=== PATIENT | female | born 1960 | race Caucasian/White ===

== ENCOUNTER → 2018-02-01 18:20 | Outpatient (CLI) | payer BC ==
[2013-08-01 08:39] VITALS: BMI 33.4
[~2018-02-01 18:20] MED LIST: NORCO 10/325 TA1 TA1 PO; PRILOSEC20 MG PO
== END | disposition home or self-care (01) ==
LOC: D.MAMMO 01-18 15:00
DX: Z12.31 Encounter for screening mammogram for malignant neoplasm of breast (principal)

== ENCOUNTER 2018-06-03 10:31 | Emergency (ER) | payer BC ==
[~2018-06-03] VITALS: Ht 152.4 cm; Wt 83.2 kg
[2018-06-03 10:55] VITALS: Ht 152.4 cm; Wt 83.2 kg
[2018-06-03] MEDS ORDERED: COZAAR50 MG PO (10:57)
[2018-06-03] MEDS ORDERED: SYNTHROID50 MCG PO (10:57)
[2018-06-03] MEDS ORDERED: GLUCOPHAGE500 MG PO (10:58)
[2018-06-03 11:33] LABS: APPEARANCE HAZY (CLEAR); BILIRUBIN NEGATIVE (NEGATIVE); COLOR YELLOW (YELLOW); GLUCOSE NEGATIVE (NEGATIVE); KETONE NEGATIVE (NEGATIVE); NITRITE NEGATIVE (NEGATIVE); PROTEIN TRACE mg/dL (NEGATIVE); UROBILINOGEN NORMAL (NORMAL)
[2018-06-03 11:34] LABS: BACTERIA FEW /hpf (NONE SEEN); EPITHELIAL CELLS 0-5 /hpf (0-5); MUCUS <1+ /lpf (NONE SEEN); RED CELLS - URINE 25-50 /hpf (0-5)
[2018-06-03 11:40] LABS: BASOPHILS 0.3 % (0-2); EOSINOPHILS 2.3 % (0-7); HEMATOCRIT 43.5 % (36.0-48.0); HEMOGLOBIN 14.7 g/dL (12-16); IMMATURE GRANULOCYTES 0.2 % (0-5); LYMPHOCYTES 26.1 % (15-50); MCH 31.8 pg (26.0-34.0); MCHC 33.8 g/dL (31.0-37.0); MCV 94.2 fL (80.0-100.0); MONOCYTES 6.5 % (2-11); NEUTROPHILS 64.6 % (40-80); PLATELET COUNT 201 10x3/uL (130-400); RBC 4.62 10x6/uL (4.00-5.40); RDW 13.3 % (11.5-14.5); WBC 6.1 10x3/uL (4.8-10.8)
[2018-06-03 11:48] LABS: ALBUMIN 3.9 g/dL (3.4-5.0); ANION GAP 10.6 mmol/L (8-16); BILIRUBIN - TOTAL 0.43 mg/dL (0.2-1.3); CALCIUM 8.8 mg/dL (8.5-10.1); CARBON DIOXIDE 27.6 mmol/L (21.0-32.0); CREATININE - SERUM 1.1 mg/dL (0.6-1.3); POTASSIUM - SERUM 3.2 mmol/L (3.5-5.1); PROTEIN - SERUM 7.7 g/dL (6.4-8.2)
[2018-06-03 16:16] VITALS: BP 136/75
== END 2018-06-03 16:17 | disposition home or self-care (01) ==
LOC: D.ER 10:31
PROVIDERS: Family Medicine
DX: R31.9 Hematuria, unspecified (principal); R30.0 Dysuria; R10.9 Unspecified abdominal pain; N20.0 Calculus of kidney

== ENCOUNTER → 2018-07-26 09:25 | Outpatient (CLI) | payer BC ==
[2018-06-03 10:55] VITALS: BMI 35.8
[~2018-07-26 09:25] MED LIST changes: +COZAAR50 MG PO; +GLUCOPHAGE500 MG PO; +SYNTHROID50 MCG PO
== END | disposition home or self-care (01) ==
LOC: D.NM 09:25
DX: M89.9 Disorder of bone, unspecified (principal)

== ENCOUNTER → 2018-08-03 11:13 | Outpatient (CLI) | payer BC ==
[2018-06-03 10:55] VITALS: BMI 35.8
== END | disposition home or self-care (01) ==
LOC: D.NM 11:13
DX: M88.9 Osteitis deformans of unspecified bone (principal)

== ENCOUNTER 2019-06-12 15:27 | Emergency (ER) | payer BC ==
[~2019-06-12] VITALS: Ht 152.4 cm; Wt 88.6 kg
[2019-06-12 15:40] VITALS: Ht 152.4 cm; Wt 88.6 kg
[2019-06-12 16:21] LABS: BASOPHILS 0.3 % (0-2); EOSINOPHILS 3.3 % (0-7); HEMATOCRIT 42.6 % (36.0-48.0); HEMOGLOBIN 14.3 g/dL (12-16); IMMATURE GRANULOCYTES 0.2 % (0-5); LYMPHOCYTES 35.7 % (15-50); MCH 32.4 pg (26.0-34.0); MCHC 33.6 g/dL (31.0-37.0); MCV 96.4 fL (80.0-100.0); MEAN PLATELET VOLUME 9.7 fL (7.4-10.4); MONOCYTES 6.1 % (2-11); NEUTROPHILS 54.4 % (40-80); PLATELET COUNT 213 10x3/uL (130-400); RBC 4.42 10x6/uL (4.00-5.40); RDW 12.9 % (11.5-14.5); WBC 6.3 10x3/uL (4.8-10.8)
[2019-06-12 16:32] LABS: APTT 29.3 SECONDS (22.8-39.4); INR 0.98 (0.85-1.17); PROTIME 12.5 SECONDS (11.6-15.0)
[2019-06-12 16:39] LABS: ALBUMIN 3.7 g/dL (3.4-5.0); ALKALINE PHOSPHATASE 129 U/L (46-116); ALT (SGPT) 31 U/L (10-68); CALC OSMOLALITY 286 mosm/kg (275-300); CALCIUM 8.7 mg/dL (8.5-10.1); CARBON DIOXIDE 29.1 mmol/L (21.0-32.0); CHLORIDE - SERUM 107 mmol/L (98-107); GLUCOSE 97 mg/dL (74-106); POTASSIUM - SERUM 3.5 mmol/L (3.5-5.1); PROTEIN - SERUM 7.5 g/dL (6.4-8.2); SODIUM 143 mmol/L (136-145); UREA NITROGEN 17 mg/dL (7-18); eGFR NON AFRICAN AMERICAN 61 mL/min (90-120)
[2019-06-12 16:50] LABS: CKMB 1.4 U/L (0.0-3.6); CREATINE KINASE 110 UL (21-215); TROPONIN-I < 0.017 ng/mL (0.000-0.060)
[2019-06-12 20:08] LABS: CKMB 1.1 U/L (0.0-3.6); CREATINE KINASE 92 UL (21-215)
[2019-06-12 20:10] LABS: TROPONIN-I < 0.017 ng/mL (0.000-0.060)
[2019-06-12 20:48] VITALS: BP 120/92
== END 2019-06-12 20:49 | disposition other institution (70) ==
LOC: D.ER 15:27
PROVIDERS: Family Medicine
DX: R07.9 Chest pain, unspecified (principal); F41.9 Anxiety disorder, unspecified